=== PATIENT | male | born 1990 | race Caucasian/White ===

== ENCOUNTER 2021-11-25 21:40 | Emergency (ER) | payer OTHER ==
[2021-11-25 21:45] VITALS: BP 146/82; PULSE 78; TEMP 97.8; BMI 26.6
== END 2021-11-25 22:31 | disposition home or self-care (01) ==
LOC: JERFT 21:40
DX: S69.91XA Unspecified injury of right wrist, hand and finger(s), initial encounter (principal); W45.8XXA Other foreign body or object entering through skin, initial encounter
CPT/HCPCS: 99281-25